=== PATIENT | female | born 2000 | race Hispanic/Latino ===

== ENCOUNTER 2023-12-15 14:18 | Inpatient (IN) | payer BC, MEDICAID ==
[~2023-12-15] VITALS: Ht 170.2 cm; Wt 71.7 kg
[2023-12-15] MEDS ORDERED: SUCCINYLCHOLINE CHLORIDE 20 MG/ML 10 ML VIAL ONE (15:21)
[2023-12-15] MEDS ORDERED: proPOFol 10 MG/ML 20ML VIAL IV ONE (15:21)
[2023-12-15] MEDS ORDERED: FENTanyl CITRate PF 50 MCG/1 ML 2ML VIAL ONE (15:21)
[2023-12-15] MEDS ORDERED: MIDAZOLAM HCL 1 MG/ML 2ML VIAL ONE (15:31)
[2023-12-15] MEDS ORDERED: FENTanyl CITRate PF 50 MCG/1 ML 5ML AMP IV ONE (15:32)
[2023-12-15] MEDS ORDERED: phenylEPHRINE HCL 10 MG/ML 1ML VIAL IV ONE (15:36)
[2023-12-15] MEDS ORDERED: ondanSETRON 4MG INJ ONE (15:39)
[2023-12-15] MEDS: ceFAZolin SODIUM 2 GM VIAL IVPB ONE (16:00)
[2023-12-15 16:07] LABS: BASOPHILS # (AUTO) 0.03 K/uL (0.00-0.20); BASOPHILS % (AUTO) 0.3 % (0.0-5.0); EOSINOPHILS # (AUTO) 0.02 K/uL (0.00-0.70); EOSINOPHILS % (AUTO) 0.2 % (0.0-8.0); HEMATOCRIT 26.8 % (36-48); IMMATURE GRANULOCYTE ABSOLUTE 0.02 K/uL (0-1); LYMPHOCYTES # (AUTO) 2.6 K/uL (1.0-4.8); LYMPHOCYTES % (AUTO) 27.9 % (21.0-51.0); MEAN CORPUSCULAR HEMOGLOBIN 18.5 pg (27.0-33.0); MEAN CORPUSCULAR HGB CONC 29.5 g/dL (32.0-36.0); MEAN CORPUSCULAR VOLUME 62.6 fL (79-99); MONOCYTES # (AUTO) 0.5 K/uL (0.1-1.0); MONOCYTES % (AUTO) 5.7 % (3.0-13.0); NEUTROPHILS % (AUTO) 65.7 % (40.0-77.0); PLATELET COUNT (AUTO) 205 K/uL (130-400); RED BLOOD CELL COUNT(AUTO) 4.28 MIL/uL (4.00-5.50); RED CELL DISTRIBUTION WIDTH 20.2 % (11.0-15.5); WHITE BLOOD COUNT (AUTO) 9.2 K/uL (4.8-10.8)
[2023-12-15 16:17] LABS: INR 0.98 (0.85-1.15); PROTHROMBIN TIME 10.6 SEC (9.6-11.6)
[2023-12-15 16:18] LABS: PARTIAL THROMBOPLASTIN TIME 26.7 SEC (26.3-35.5)
[2023-12-15] MEDS: MEPERIDINE-PF 25 MG/ML SYG ONE ×2 (16:24→17:13)
[2023-12-15 16:29] LABS: AMPHET/METH SCREEN,URINE NEGATIVE (NEGATIVE); BARBITURATE SCREEN, URINE NEGATIVE (NEGATIVE); BENZODIAZEPINES SCREEN,URINE NEGATIVE (NEGATIVE); CANNABINOID SCREEN,URINE POSITIVE (NEGATIVE); COCAINE SCREEN,URINE POSITIVE (NEGATIVE); OPIATE SCREEN,URINE NEGATIVE (NEGATIVE); PHENCYCLIDINE SCREEN,URINE NEGATIVE (NEGATIVE)
[2023-12-15 16:30] LABS: APPEARANCE,URINE CLOUDY (CLEAR); BILIRUBIN,URINE NEGATIVE (NEGATIVE); COLOR,URINE YELLOW (YELLOW); GLUCOSE, URINE (UA) NEGATIVE (NEGATIVE); KETONES,URINE 5 mg/dL (NEGATIVE); LEUKOCYTE ESTERASE ,URINE 500 Leu/uL (NEGATIVE); NITRATE,URINE NEGATIVE (NEGATIVE); OCCULT BLOOD,URINE MODERATE (NEGATIVE); PROTEIN,URINE 300 mg/dL (NEGATIVE)
[2023-12-15 16:32] LABS: ADD UA MICROSCOPIC YES
[2023-12-15 16:35] LABS: RBC,URINE 26-50 /HPF (0-1)
[2023-12-15 16:36] LABS: BACTERIA,URINE Rare /HPF (None Seen); MUCUS,URINE Many LPF (None Seen); SQUAMOUS EPITHELIAL CELL,UR Many /HPF (0-2); WBC,URINE 51-100 /HPF (0-1)
[2023-12-15 18:15] VITALS: BP 145/87; PULSE 58; RESP 20; TEMP 96.5
[2023-12-15] MEDS ORDERED: 0.9%NACL 10ML VIAL IVP PRN (18:30)
[2023-12-15] MEDS ORDERED: MEPERIDINE-PF 75 MG/ML SYG IM PRN (18:30)
[2023-12-15] MEDS ORDERED: PROMETHAZINE HCL 25 MG/ML 1ML AMPULE IM PRN (18:30)
[2023-12-15] MEDS: CALDOLOR 800MG+NS 250ML 250 ML IV ONE (19:21)
[2023-12-15 19:30] VITALS: BP 144/80; PULSE 60; RESP 13; TEMP 98.2
[2023-12-15 23:30] VITALS: BP 149/88; PULSE 81; RESP 15; TEMP 98.8
[2023-12-15] MEDS: LACTATED RINGERS 1000ML 1,000 ML IV PRN (23:30)
[2023-12-15] MEDS: ceFAZolin SODIUM 1 GM VIAL IVPB SCH (23:31)
[2023-12-16] MEDS ORDERED: CALDOLOR 800MG+NS 250ML 250 ML IV SCH (02:30)
[2023-12-16 03:45] VITALS: BP 148/87; PULSE 62; RESP 15; TEMP 98.5
[2023-12-16] MEDS ORDERED: CALDOLOR 800MG+NS 250ML 250 ML IV ONE (03:57)
[2023-12-16] MEDS: CALDOLOR 800MG+NS 250ML 250 ML IV SCH (04:00)
[2023-12-16] MEDS: DEXTROSE 5 %-0.45 % NACL 1,000 ML IV PRN (04:28)
[2023-12-16 06:45] LABS: HEMATOCRIT 21.9 % (36-48); MEAN CORPUSCULAR HEMOGLOBIN 18.4 pg (27.0-33.0); MEAN CORPUSCULAR HGB CONC 29.7 g/dL (32.0-36.0); RED BLOOD CELL COUNT(AUTO) 3.53 MIL/uL (4.00-5.50); RED CELL DISTRIBUTION WIDTH 19.7 % (11.0-15.5); WHITE BLOOD COUNT (AUTO) 11.1 K/uL (4.8-10.8)
[2023-12-16 07:25] VITALS: BP 141/76; PULSE 49; RESP 20; TEMP 98.1
[2023-12-16 08:37] LABS: HIV 1&2 ANTIBODY Non-Reactive (Negative); HIV-1 p24 Antigen Non-Reactive (Negative)
[2023-12-16 08:38] LABS: RAPID PLASMA REAGIN NONREACTIVE (NONREACTIVE)
[2023-12-16 11:30] VITALS: BP 145/92; PULSE 57; RESP 20; TEMP 98
[2023-12-16] MEDS: CALDOLOR 800MG+NS 250ML 250 ML IV ONE (12:27)
[2023-12-16] MEDS ORDERED: FERR-82 PO (15:53)
[2023-12-16 16:00] VITALS: BP 145/97; PULSE 53; RESP 20; TEMP 98.4
[2023-12-16] MEDS ORDERED: LANOLIN 30GM OINTMENT TP PRN (17:00)
[2023-12-16] MEDS ORDERED: BisaCODYL 10 MG SUPP.RECT RC PRN (17:00)
[2023-12-16] MEDS ORDERED: acetaMINOPHEN 500 MG TABLET PO PRN (17:00)
[2023-12-16] MEDS ORDERED: HYDROcodone/APAP 5/325 1 TAB TABLET PO PRN (17:00)
[2023-12-16] MEDS ORDERED: acetaMINOPHEN WITH coDEINE 1 TAB TAB PO PRN (17:00)
[2023-12-16 19:07] VITALS: BP 150/86; PULSE 78; RESP 18; TEMP 98.4
[2023-12-16] MEDS: SIMETHICONE 80 MG TAB.CHEW PO PRN (20:46)
[2023-12-16] MEDS: doCUSate SODIUM 100 MG CAP PO SCH (20:46)
[2023-12-16] MEDS: ibuPROFEN 800 MG TAB PO SCH (20:47)
[2023-12-16 23:25] VITALS: BP 143/70; PULSE 67; RESP 18; TEMP 98.7
[2023-12-17] MEDS: LACTATED RINGERS 1000ML 1,000 ML IV SCH (00:20)
[2023-12-17] MEDS: ceFAZolin SODIUM 2 GM VIAL IVPB SCH (00:23)
[2023-12-17 03:13] VITALS: BP 146/72; PULSE 69; RESP 18; TEMP 98.6
[2023-12-17 07:20] VITALS: BP 142/71; PULSE 99; RESP 18; TEMP 98.3
[2023-12-17] MEDS ORDERED: PREN1TAB80 PO (08:47)
== END 2023-12-17 09:05 | disposition home or self-care (01) | DRG 786 ==
LOC: EDH 14:18 → LDH 14:19 → OBSVTOIN 14:19 → WSH 18:33
PROVIDERS: ADMIT Obstetrics & Gynecology; ATTEND Obstetrics & Gynecology
PROC: 10D00Z1 Extraction of Products of Conception, Low, Open Approach (ICD-10-PCS; principal; 2023-12-15 15:25)
DX: O60.14X0 Preterm labor third trimester with preterm delivery third trimester, not applicable or unspecified (principal); O45.93 Premature separation of placenta, unspecified, third trimester; O99.324 Drug use complicating childbirth; O99.02 Anemia complicating childbirth; F14.90 Cocaine use, unspecified, uncomplicated; O76 Abnormality in fetal heart rate and rhythm complicating labor and delivery; Z3A.28 28 weeks gestation of pregnancy; Z37.0 Single live birth
CPT/HCPCS: 36415; 59510; 76805; 80305; 81001; 85025; 85027; 85378; 85384; 85610; 85730; 86592; 86701; 86850; 86900; 86901; 87086; 87340; 87390; 88307; A4344; G0378; J0330; J0690; J1741; J2175; J2210; J2250; J2371; J2405; J2590; J2704; J3010; J7120; C1765; J3490; L0625

== ENCOUNTER 2024-06-05 18:20 | Emergency (ER) | payer BC, MEDICAID ==
[~2024-06-05] VITALS: Ht 170.2 cm; Wt 61.2 kg
[~2024-06-05 18:20] MED LIST: FERR-82 PO; PREN1TAB80 PO
[2024-06-05] MEDS ORDERED: HYDROcodone/APAP 5/325 1 TAB TABLET PO ONE (18:30)
[2024-06-05] MEDS: acetaMINOPHEN 500 MG TABLET PO ONE (18:46)
[2024-06-05 18:53] LABS: AMPHET/METH SCREEN,URINE NEGATIVE (NEGATIVE); BARBITURATE SCREEN, URINE NEGATIVE (NEGATIVE); BENZODIAZEPINES SCREEN,URINE NEGATIVE (NEGATIVE); CANNABINOID SCREEN,URINE POSITIVE (NEGATIVE); COCAINE SCREEN,URINE POSITIVE (NEGATIVE); OPIATE SCREEN,URINE NEGATIVE (NEGATIVE); PHENCYCLIDINE SCREEN,URINE NEGATIVE (NEGATIVE)
--- NOTE | 2024-06-05 19:03 | ERN ---
ED Note History of Present Illness Stated Complaint: MECHANICAL FALL,SOB,MULTIPLE COMPLAINTS Chief Complaint: Rib Pain Time Seen by MD: 17:48 Dictation: PATIENT IS A 23-YEAR-OLD FEMALE HERE WITH HER MOTHER WITH COMPLAINTS OF LEFT LATERAL CHEST WALL PAIN TENDERNESS STATUS POST A SLIP FALL IN THE SHOWER LAST NIGHT. SHE IS COMPLAINING OF MILD SHORTNESS A BREATH SKIN IS INTACT NO ECCHYMOSIS NOTED. BILATERAL BREATH SOUNDS CLEAR Allergies: Coded Allergies: No Known Allergies (Unverified Allergy, Unknown, 12/15/23) Home Meds Reported Medications Vits W-Ca,Fe,FA(<1Mg) ( Vitamins) 27 Mg Iron-800 Mcg Tablet, 1 TAB PO DAILY for 30 Days, #30 TAB 0 Refills 12/17/23 Ferrous Sulfate (Iron) 325 Mg (65 Mg Iron) Tablet, 1 TAB PO DAILY for 30 Days, #30 TAB 0 Refills 12/16/23 Past Medical History Past Medical History: No Pertinent History Surgical History: History: Not Applicable : 1 RN Note Reviewed/Agreed w/PFSH: Yes Review of System Dictation CONSTITUTIONAL: NEGATIVE EXCEPT FOR HPI HEAD/FACE: NEGATIVE EXCEPT FOR HPI EENT: NEGATIVE EXCEPT FOR HPI RESPIRATORY: NEGATIVE EXCEPT FOR HPI LEFT LATERAL CHEST WALL PAIN TENDERNESS GASTROINTESTINAL/ABDOMINAL: NEGATIVE EXCEPT FOR HPI GENITOURINARY: NEGATIVE EXCEPT FOR HPI MUSCULOSKELETAL: NEGATIVE EXCEPT FOR HPI INTEGUMENTARY: NEGATIVE EXCEPT FOR HPI NEUROLOGICAL/PSYCH: NEGATIVE EXCEPT FOR HPI HEMATOLOGIC/LYMPHATIC: NEGATIVE EXCEPT FOR HPI ALL SYSTEMS NEGATIVE, EXCEPT NOTED ABOVE. 13 POINT REVIEW OF SYSTEMS ASSESSED AND ALL NEGATIVE EXCEPT FOR ABOVE. Initial Vital Sign VS Vital Signs Date Time Temp Pulse Resp B/P (MAP) Pulse Ox O2 Delivery O2 Flow Rate FiO2 06/05/24 18:25 99.0 82 18 114/60 99 Room Air 0 06/05/24 18:49 21 Physical Exam Dictation VITAL SIGNS REVIEWED GENERAL APPEARANCE: ALERT, ORIENTED X 3, MODERATE ACUTE DISTRESS, WELL DEVELOPED, NOURISHED. HEAD AND FACE: NON-TRAUMATIC. EYES: PERRL, PINK CONJUNCTIVAS, EYELID NO TRAUMA, ANTERIOR CHAMBER WITH ARCUS SENILIS. EARS: PINNAS INTACT AND NO SIGNS OF TRAUMA OR ERYTHEMA EAR CANALS CLEAR AND NO DISCHARGE TM NO ERYTHEMA NOSE: NO DISCHARGE, NO BLEEDING. OROPHARYNX: MOUTH NORMAL, TONGUE PINK, PHARYNX CLEAR,NO ERYTHEMA, TONSILS NO EXUDATES, NO ABSCESSES NOTED, MUCOUS MEMBRANE MOIST NECK: SUPPLE, NON-TENDER, NO THYROMEGALY, NO MASSES, NO JVD, NO BRUITS BREAST:DEFERRED CHEST: LEFT LATERAL CHEST WALL PAIN TENDERNESS NO CREPITUS, NO PARADOXICAL MOVEMENT, NO RETRACTIONS LUNGS:CLEAR, WELL-VENTILATED, SYMMETRIC, NO RALES, NO WHEEZING, NO RHONCHI, NO STRIDOR, GOOD BREATH SOUNDS BILATERALLY HEART: REGULAR RATE, REGULAR RHYTHM, NO MURMUR, NO GALLOPS VASCULAR: NO PERIPHERAL EDEMA, ABDOMEN: SOFT, POSITIVE BOWEL SOUNDS, NONDISTENDED, NO GUARDING, NONTENDER, NO REBOUND, NO MASSES NO HEPATOMEGALY, NO SPLENOMEGALY, NO MENDIETA'S SIGN, NO HERNIAS. RECTAL: DEFERRED GENITAL: DEFERRED NEUROLOGICAL: NORMAL SPEECH, MOTOR FUNCTION INTACT, SENSORY FUNCTION INTACT MUSCULOSKELETAL: NECK NONTENDER, FULL RANGE OF MOTION, BACK NONTENDER, FULL RANGE OF MOTION, EXTREMITIES: NONTENDER, FULL RANGE OF MOTION SKIN: COLOR PINK, DRY, NO TURGOR, NO RASH, NO LACERATIONS, NO ABRASIONS, NO CONTUSIONS. LYMPHATIC: DEFERRED Results (Laboratory/Radiology) Laboratory/Radiology Laboratory Tests Test 06/05/24 18:30 Urine HCG, Qualitative NEGATIVE (NEGATIVE) Urine Opiates Screen NEGATIVE (NEGATIVE) Urine Barbiturates Screen NEGATIVE (NEGATIVE) Urine Phencyclidine Screen NEGATIVE (NEGATIVE) Urine Amphetamines Screen NEGATIVE (NEGATIVE) Urine Benzodiazepines Screen NEGATIVE (NEGATIVE) Urine Cocaine Screen POSITIVE (NEGATIVE) H Urine Marijuana (THC) Screen POSITIVE (NEGATIVE) H RIB SERIES DEMONSTRATES PROBABLE 6TH RIB FRACTURE LUNGS ARE EXPANDED Labs Reviewed?: Yes ED Course ED Course Orders Procedure Category Date Status Time Testing, LAB 06/05/24 Logged Serum Hcg 18:26 Ribs Uni Lt W Pa RAD 06/05/24 Taken Chest 3+Vws 18:26 Hydrocodone/Apap PHA 06/05/24 Complete 5/325 (Bowler 5/325mg) 18:30 Drug Screen Urine LAB 06/05/24 Complete 18:31 Acetaminophen 500mg PHA 06/05/24 Complete Tab (Tylenol 500mg T 19:00 ,Urine Test LAB 06/05/24 Complete 18:55 Current Medications Medications (Trade) Dose Ordered Sig/Ruth Route PRN Reason Start Time Stop Time Status Last Admin Dose Admin Acetaminophen (TYLenol 500MG TAB) 1,000 mg ONCE ONCE PO 06/05/24 19:00 06/05/24 19:01 DC 06/05/24 18:46 Acetaminophen/ Hydrocodone Bitart (NORco 5/325MG) 1 tab ONCE ONCE PO 06/05/24 18:30 06/05/24 18:32 DC Vital Signs Date Time Temp Pulse Resp B/P (MAP) Pulse Ox O2 Delivery O2 Flow Rate FiO2 06/05/24 18:49 99.0 80 18 116/60 98 Room Air* 0 21 06/05/24 18:25 99.0 82 18 114/60 99 Room Air 0 2001/SPOKE WITH PATIENT AT LENGTH REGARDING POLYDRUG ABUSE TO INCLUDE COCAINE AND RISK FOR HEART ATTACK/COKE/INSTANT HE WAS WARNED TO STOP AND TO FOLLOW UP WITH HER DOCTOR. Medical Decision Making MDM MEDICAL DISCHARGE MAKING BASED ON RIB SERIES AND URINE DRUG SCREEN DUE TO PATIENT'S BEHAVIOR. PATIENT IS POSITIVE FOR COCAINE AND THC ALSO LEFT 6TH RIB FRACTURE DISCHARGED HOME WITH WARNINGS TO STOP DRUG USE INCLUDING COCAINE OR RISK OF IBUPROFEN PAIN DX & DISP Disposition: Discharge Departure Impression: Primary Impression: Left rib fracture Additional Impressions: Polydrug abuse, Fall Condition: Stable Scripts Ibuprofen (Ibuprofen) 600 Mg Tablet 600 MG PO Q6H PRN for PAIN, #30 TAB Prov: JOSE ANGEL HENSON MIS DIRECTOR 06/05/24 Additional Instructions: FOLLOW-UP WITH PRIMARY CARE PROVIDER IN 1 TO 2 DAYS. TAKE MEDICATIONS DIRECTED HERE IN THE EMERGENCY ROOM. OKAY TO CONTINUE HOME MEDICATIONS UNLESS OTHERWISE DISCUSSED DURING YOUR VISIT IN THE EMERGENCY ROOM TODAY. RETURN TO YOUR NEAREST EMERGENCY ROOM IF SYMPTOMS WORSEN OR IF THERE IS NO IMPROVEMENT. CALL 911 IF YOU NEED IMMEDIATE ASSISTANCE. TAKE TYLENOL OR MOTRIN [id number] NEEDED AND IF NO CONTRAINDICATIONS ARE PRESENT. INCREASE ORAL HYDRATION. A WOUND CULTURE OR URINE CULTURE WAS ORDERED HERE IN THE EMERGENCY ROOM DEPARTMENT PLEASE FOLLOW-UP WITH PRIMARY CARE PROVIDER AND ADVISE THEM TO GET REPEAT PORTS FROM OUR FACILITY. IF YOU HAD ANY NAS WRAP/SPLINTS THAT WERE APPLIED HERE, PLEASE DO NOT REMOVE THEM UNTIL YOU SEE YOUR PRIMARY CARE OR SPECIALTY. STOP ALL DRUG USE INCLUDING COCAINE OR RISK HEART ATTACK, INSTANT , STROKE. TAKE IBUPROFEN EVERY 6-8 HOURS NEEDED FOR PAIN WITH FOOD. SEE YOUR PRIMARY CARE DOCTOR FOR FOLLOW UP. Referrals: ANALILIA HACKETT MD (PCP) Time of Disposition: 20:05 I have reviewed the case, and I agree with, Diagnosis and Plan JOSE ANGEL HENSON NP Jun 05, 2024 19:03
[2024-06-05] MEDS ORDERED: IBUP-2070 PO (20:06)
--- NOTE | 2024-06-05 20:36 | HMCIMG ---
RIBS UNI LT W PA CHEST 3+VWS CLINICAL HISTORY: LEFT LATERAL RIB PAIN STATUS POST SAME LEVEL FALL YESTERDAY COMPARISON: None TECHNIQUE: 6 images were obtained. FINDINGS: There is a left perihilar lung mass infiltrate or contusion. The bony structures appear intact. The cardiac size is unremarkable the right lung is clear. IMPRESSION: Left parahilar lung mass contusion or infiltrate. Recommend CT scan for further evaluation.
[2024-06-05 20:41] VITALS: BP 116/60; PULSE 80; RESP 18; TEMP 99; O2SAT 98
== END 2024-06-05 20:46 | disposition home or self-care (01) ==
LOC: EDH 18:20
DX: S22.32XA Fracture of one rib, left side, initial encounter for closed fracture (principal); F19.10 Other psychoactive substance abuse, uncomplicated; Z79.899 Other long term (current) drug therapy; Z98.890 Other specified postprocedural states; W18.2XXA Fall in (into) shower or empty bathtub, initial encounter; Y93.89 Activity, other specified; Y92.89 Other specified places as the place of occurrence of the external cause; Y99.8 Other external cause status
CPT/HCPCS: 71101; 80305; 81025; 99283